=== PATIENT | female | born 1945 | race American Indian/Alaskan Native ===

== ENCOUNTER 2020-12-24 06:00 | Day surgery (SDC) | payer MEDICARE ==
[2020-12-23 11:15] LABS: Blood Urea Nitrogen 10 mg/dL (7-17); Calcium 9.5 mg/dL (8.4-10.2); Hemolysis Index 24
[2020-12-23 11:20] LABS: BUN/Creatinine Ratio 17
[~2020-12-24 06:00] MED LIST: LACTATED RINGERS 1,000 ML IV SCH; ceFAZolin/Water 2 GM/20 ML 2 GM/20 ML SYRINGE IV NR
--- NOTE | 2020-12-24 14:30 | Anesthesia Consultation ---
Anesthesia Consult and Med Hx Date of service: 12/24/20 - Airway Anesthetic Teeth Evaluation: Poor ROM Head & Neck: Adequate Mental/Hyoid Distance: Adequate Mallampati Class: Class I Intubation Access Assessment: Probably Good - Pulmonary Exam CTA: No (mild scattered expiratory wheezes) - Cardiac Exam Cardiac Exam: RRR - Pre-Operative Health Status ASA Pre-Surgery Classification: ASA3 Proposed Anesthetic Plan: General - Pulmonary Hx Smoking: Yes (1PPD; long smoking hx) Hx Respiratory Symptoms: No SOB: No COPD: Yes (used home inhalers) Home Oxygen Therapy: No - Cardiovascular System Hx Hypertension: Yes Hx Heart Attack/AMI: No Hx Percutaneous Transluminal Coronary Angioplasty (PTCA): No - Central Nervous System CVA: No - Endocrine Hx Renal Disease: No Hx Liver Disease: No Hx Non-Insulin Dependent Diabetes: Yes Hx Thyroid Disease: No - Additional Comments Anesthesia Medical History Comments: No hx anesthetic complications. Will give preop albuterol neb.
--- NOTE | 2020-12-24 14:31 | Anesthesia Day of Surgery ---
Anesthesia Day of Surgery - Day of Surgery Patient Examined: Yes Patient H&P Reviewed: Yes Patient is NPO: Yes
[2020-12-24] MEDS ORDERED: ALBUTEROL 8.5 GM MDI INHALATION IH ONE (14:32)
[2020-12-24] MEDS ORDERED: BUPIVACAINE/PF (0.5%) 5 MG/1 ML 30 ML VIAL INFILTRATI ONE (14:46)
[2020-12-24] MEDS ORDERED: BUPIVACAINE/PF (0.5%) 5 MG/1 ML 10 ML VIAL INFILTRATI ONE ×2 (14:47→18:03)
[2020-12-24] MEDS ORDERED: ONDANSETRON 4 MG/2 ML INJ IV PRN (15:00)
[2020-12-24] MEDS ORDERED: fentaNYL 100 MCG/2 ML INJ IV PRN (15:00)
[2020-12-24] MEDS ORDERED: ALBUTEROL 2.5 MG/3 ML NEBU IH SCH (15:00)
[2020-12-24] MEDS ORDERED: GLYCOPYRROLATE 0.4 MG/2 ML INJ ONE (16:53)
[2020-12-24] MEDS ORDERED: dexAMETHasone 20 MG/5 ML VIAL ONE (16:53)
[2020-12-24] MEDS ORDERED: ONDANSETRON 4 MG/2 ML INJ ONE (16:53)
[2020-12-24] MEDS ORDERED: PHENYLEPHRINE/NS 1,000 MCG/10 ML SYRINGE (OR USE) IV ONE (16:53)
[2020-12-24] MEDS ORDERED: LIDOCAINE MPF (2%) 20 MG/1 ML VIAL 5 ML ONE (16:53)
[2020-12-24] MEDS ORDERED: propofoL 200 MG/20 ML VIAL IV ONE (16:54)
[2020-12-24] MEDS ORDERED: fentaNYL 100 MCG/2 ML INJ ONE (16:54)
[2020-12-24] MEDS ORDERED: ROCURONIUM 50 MG/5 ML INJ IV ONE (17:00)
[2020-12-24] MEDS ORDERED: SUCCINYLCHOLINE CHLORIDE 200 MG/10 ML INJ MDV ONE (17:00)
[2020-12-24] MEDS ORDERED: HYDROmorphone 1 MG/1 ML INJ ONE (17:32)
[2020-12-24] MEDS ORDERED: SUGAMMADEX SODIUM 200 MG/2 ML VIAL IV ONE (17:36)
--- NOTE | 2020-12-24 17:44 | Procedure Note ---
Date of procedure: 12/24/20 Pre-op diagnosis: right carpal tunnel syndrome Post-op diagnosis: same Procedure: [Right endoscopic carpal tunnel release Procedure The patient was brought to the OR placed in the OR table in supine position following induction and intubation anesthesia the patient's right upper extremity was prepped and draped in the usual sterile manner a timeout procedure was done to identify the patient and the correct operative site next the arm was exsanguinated followed by inflation of the pneumatic tourniquet to 250 mmHg a volar incision was made at the distal wrist crease this is taken down through skin and subcutaneous using loupe magnification the superficial flexor sheath was identified next the carpal canal was entered using dilators andthe arthroscope was inserted the patient was noted to have some tightness at the carpal canal and the transverse carpal transverse carpal ligament was identified with the arthroscope in line with the fourth metacarpal the knife blade assembly was elevated the ligament was released from distal to proximal care was taken to release the ligament as completely as possible a second look was done and it appeared that the ligament was completely released at this point The wound was irrigated and was closed in a standard routine fashion. Dressings were applied the patient tolerated the procedure there were no complications she was sent to postanesthesia recovery in stable condition Anesthesia: GETA Surgeon: LA MAGAÑA (Melanie Ryan, 1st assist) Estimated blood loss: minimal Pathology: none Condition: stable Disposition: PACU
[2020-12-24] MEDS ORDERED: SODIUM CHLORIDE FOR INHALATION NEBU 3 ML ONE (18:03)
[2020-12-24] MEDS ORDERED: ALBUTEROL 2.5 MG/3 ML NEBU IH ONE (18:30)
--- NOTE | 2020-12-24 18:59 | Post Anesthesia Evaluation ---
- Post Anesthesia Evaluation Patient Participated: Yes Airway Patent: Yes Stable Respiratory Function: Yes Nausea/Vomiting: No Temp > 96.8F: Yes Pain Manageable: Yes Adequeate Hydration: Yes Anesthesia Complications: No Other Comments: On arrival to PACU, patient noted to have decreased breath sounds on the right and coarse breath sounds overall. NT suction performed via nasal airway with improvement in air movement bilaterally back to baseline. Albuterol nebulizer given. Patient provided with incentive spirometry and encouraged to continue use after d/c. Demonstrated appropriate use and verbalized understanding.
[2020-12-24 19:03] VITALS: BP 110/60
== END 2020-12-24 06:01 | disposition home or self-care (01) ==
LOC: OR 06:00
PROVIDERS: ATTEND Orthopaedic Surgery
DX: G56.01 Carpal tunnel syndrome, right upper limb (principal); Z20.822 Contact with and (suspected) exposure to COVID-19; F17.210 Nicotine dependence, cigarettes, uncomplicated; J44.9 Chronic obstructive pulmonary disease, unspecified; E11.9 Type 2 diabetes mellitus without complications; Z79.899 Other long term (current) drug therapy; Z98.49 Cataract extraction status, unspecified eye; Z98.890 Other specified postprocedural states
CPT/HCPCS: 29848; 36415; 80048; 82962; J0330; J0690; J1100; J1170; J2370; J2405; J2704; J3010; J7120; U0003